=== PATIENT | female | born 1995 | race Caucasian/White ===

== ENCOUNTER 2019-05-07 06:33 | Emergency (ER) | payer OTHER ==
[~2019-05-07] VITALS: Ht 149.9 cm; Wt 68.2 kg
[2019-05-07] MEDS ORDERED: NEURONTIN300 MG/CAP PO (06:59)
[2019-05-07] MEDS ORDERED: AMBIEN 10MG10 MG PO (07:01)
[2019-05-07] MEDS ORDERED: TRI-SPRINTEC 281 TAB PO (07:02)
[2019-05-07] MEDS ORDERED: EFFEXOR-XR150 MG PO (07:03)
[2019-05-07] MEDS ORDERED: WELCHOL 625MG625 MG PO (07:05)
[2019-05-07] MEDS ORDERED: MOTRIN 800800 MG/TAB PO (07:06)
[2019-05-07 07:07] VITALS: BP 121/99; PULSE 89; TEMP 97.6
[2019-05-07 08:13] LABS: HIV 1/2 Antibodies Non-Reactive; HIV-1p24 Antigen Non-Reactive
[2019-05-07 13:11] LABS: HEPATITIS B SURFACE ANTIBODY <2.0 (()); HEPATITIS B SURFACE ANTIGEN Negative (Negative); HEPATITIS C VIRUS ANTIBODY Negative (Negative)
== END 2019-05-07 07:34 | disposition home or self-care (01) ==
LOC: COL.ER 06:33
PROVIDERS: Emergency Medicine
DX: S61.233A Puncture wound without foreign body of left middle finger without damage to nail, initial encounter (principal); F32.9 Major depressive disorder, single episode, unspecified; W46.0XXA Contact with hypodermic needle, initial encounter; Y92.59 Other trade areas as the place of occurrence of the external cause

== ENCOUNTER → 2019-05-07 | Outpatient (REF) ==
[~2019-05-07] MED LIST: AMBIEN 10MG10 MG PO; EFFEXOR-XR150 MG PO; MOTRIN 800800 MG/TAB PO; NEURONTIN300 MG/CAP PO; TRI-SPRINTEC 281 TAB PO; WELCHOL 625MG625 MG PO
== END | disposition home or self-care (01) ==
LOC: COL.EMP 06:23
DX: Z02.89 Encounter for other administrative examinations (principal)

== ENCOUNTER 2019-07-13 14:08 | Outpatient (RCR) | payer OTHER | END 2019-10-11 | disposition home or self-care (01) | LOC: WSOH | DX: Z77.21 Contact with and (suspected) exposure to potentially hazardous body fluids (principal); W46.0XXD Contact with hypodermic needle, subsequent encounter; Y99.0 Civilian activity done for income or pay ==

== ENCOUNTER → 2019-07-13 14:08 | Outpatient (RCR) | payer OTHER | END | disposition still patient (30) | LOC: WSOH 05-30 13:30 | DX: S61.233A Puncture wound without foreign body of left middle finger without damage to nail, initial encounter (principal); W46.0XXA Contact with hypodermic needle, initial encounter; Z77.21 Contact with and (suspected) exposure to potentially hazardous body fluids ==